=== PATIENT | male | born 1950 | race Caucasian/White ===

== ENCOUNTER → 2017-01-15 | Day surgery (SDC) | payer OTHER ==
[~2017-01-15] MED LIST: ATENOLOL50 MG PO; CENTRUM SILVER PO; COZAAR100 MG PO; GARLIC OIL1000 MG PO; LO-DOSE ASPIRIN81 M1 PO; PERIACTIN4 M1 PO; SIMVASTATIN40 MG PO; SYNTHROID125 PO; TUDORZA PRESS400 MCG INH; VENTOLIN HFA INH; VITAMIN D-32000 UNIT PO
--- NOTE | ~2017-01-15 | OR ---
Unit #: [id number] #: [id number] Patient: VINNIE ROMEO [id number] [address] [place], [place] [address] [id number] MR#: [id number] NAME: VINNIE ROMEO ROOM: Date of Procedure: 01/15/2017 Admission Date: 01/15/2017 Surgeon: Hayden Sandhu M.D. : 1950 Attending Physician: Haydne Sandhu M.D. Primary Care Physician: Fela Persaud A.P.R.N. OPERATIVE REPORT INDICATIONS Positive Cologuard test. MEDICATIONS Monitored anesthesia. PROCEDURE PERFORMED Colonoscopy to cecum with snare polypectomy, tattooing, and hemoclip application. MEDICATIONS Monitored anesthesia. POSTOPERATIVE FINDINGS 1. Large polyp pedunculated about 2 cm in sigmoid colon, this was snared in one piece and sent for histopathology. The stem was hemoclipped. Tattooing was done around this polypectomy site. 2. Small polyp, 5 mm, proximal sigmoid, snared and sent for histopathology. 3. Rest of the colon exam to cecum was normal. PLAN Repeat colonoscopy in 3 years. DESCRIPTION OF PROCEDURE The patient was explained of the procedure, risks, and benefits along with the risks and benefits of anesthesia. He was brought to the endoscopy room. Propofol anesthesia was given. Rectal exam was done, which was normal. Colonoscope was lubricated, passed up the rectum, advanced under direct vision all the way to the cecum. Cecum was identified by ileocecal valve and appendiceal orifice. I then started to pull the scope out carefully looking. Polyp seen in sigmoid was snared and sent for pathology. The larger polyp in sigmoid as described above. I retroflexed in the rectum, small hemorrhoids seen. Scope was gently pulled out. He tolerated it well. No major complications were seen. Dictated by... Mary Byrnes/ange Unit #: [id number] #: [id number] Patient: VINNIE ROMEO TD: 01/15/2017 16:02 JOB #: [id number] CC: [employer] M.D. OPERATIVE REPORT Page 1 of 1 X Hayden Sandhu MD PROCEDURE OPERATIVE NOTE
== END | disposition home or self-care (01) ==
LOC: COPS 11:32
DX: D12.5 Benign neoplasm of sigmoid colon (principal); K63.5 Polyp of colon; K64.9 Unspecified hemorrhoids; I12.9 Hypertensive chronic kidney disease with stage 1 through stage 4 chronic kidney disease, or unspecified chronic kidney disease; N18.3 Chronic kidney disease, stage 3 (moderate); E78.5 Hyperlipidemia, unspecified; J44.9 Chronic obstructive pulmonary disease, unspecified; Z98.890 Other specified postprocedural states; Z79.899 Other long term (current) drug therapy; Z79.82 Long term (current) use of aspirin
CPT/HCPCS: 88305